=== PATIENT | female | born 1950 | race Caucasian/White ===

== ENCOUNTER 2016-11-18 08:25 | Day surgery (SDC) | payer BC ==
[2016-11-16 12:12] LABS: HEMATOCRIT 41.2 % (36.0-48.0); HEMOGLOBIN 14.3 g/dL (12.0-16.0)
[2016-11-16 12:26] LABS: BUN (BLOOD UREA NITROGEN) 8 MG/DL (6-23); CALCIUM, SERUM 9.7 MG/DL (8.5-10.4); CHLORIDE, SERUM 106 MMOL/L (96-112); CO2 (CARBON DIOXIDE) 26 MMOL/L (24-34); CREATININE 0.67 MG/DL (0.55-1.02); GFR AFRICAN AMERICAN 108 ML/MIN (>=60); GFR NON AFRICAN AMERICAN 93 ML/MIN (>=60); GLUCOSE, SERUM 90 MG/DL (60-99); POTASSIUM, SERUM 4.4 MMOL/L (3.5-5.3); SODIUM, SERUM 142 MMOL/L (135-148)
--- NOTE | ~2016-11-18 | OP ---
Record Of Operation [facility] [address] [place]. [address] NAME: SOPHIA PALACIOS : 54 STATUS : REG [facility] [place] PAT#: [id number] AGE: 66 ADM/REG DATE : 11/18/16 MR#: [id number] REPORT SERV DATE: 11/18/16 DICTATED BY: ABUNDIO INFANTE DATE: 11/18/16 REPORT STATUS : Draft TRANSCRIBED BY: MODL DATE: 11/18/16 DATE OF PROCEDURE: PREOPERATIVE DIAGNOSIS: Herniated nucleus pulposus, right L5-S1. POSTOPERATIVE DIAGNOSIS: Herniated nucleus pulposus, right L5-S1. PROCEDURE: 1. Microscopic navigation-assisted surgery. 2. Right L5-S1 hemilaminotomy and microdiskectomy. SURGEON: Abundio Infante D.O. SENIOR EDITOR: Alexa Brown. ANESTHESTIC: General. BLOOD LOSS: 15 mL. INDICATIONS FOR SURGERY: A 66-year-old female from the [facility] with a severe intractable right hip and leg pain. It has been through time, medication, and physician assistant primary care etc., nothing has helped. She has failed conservative care. Plain x-rays do reveal some loss of disk height at C5-6, but MRI shows a large extrusion with some migration behind the body of S1 on the right. The patient has failed conservative care and brought to surgery for the above procedure. Prior to surgery, risks, benefits, alternatives, and expectations were explained. Consent form has been signed. PROCEDURE IN DETAIL: Antibiotic prophylaxis given. Neurophysiology monitoring leads were inserted. The patient was brought to the operative suite. General anesthetic including endotracheal intubation was administered. The patient was placed prone on a Mikael spine frame. Bony prominences were carefully padded. Thoracolumbar spine was scrubbed with Hibiclens solution. DuraPrep was painted. Sterile drapes were applied. A small stab wound was carried out at the left posterosuperior iliac spine. A percutaneous pin with navigational frame attached was inserted in the PSIS. Intraoperative CT scan with O-arm obtained. CT information was used to register the navigational system. With navigational assistance, I identified the L5-S1. A midline incision was carried out just 2 cm in length. Blunt navigated probe was placed through the fascia, muscle, and docked over the interlaminar space. Muscle dilators were inserted followed by placement of a tubular retractor attached to an arm mount on the table. The microscope was sterilely draped and used throughout the remainder of the procedure. With navigational assistance, I determined the amount of lamina of L5 that needed to be removed in order to reach the cephalad boundary of the disk space. I used a 3 mm jesica bur and removed approximately 30% of the inferior lamina of L5, approximately 20% of medial Record Of Operation [address] [id number] NAME: SOPHIA PALACIOS : 54 STATUS : REG [facility] [place] PAT#: [id number] AGE: 66 ADM/REG DATE : 11/18/16 MR#: [id number] REPORT SERV DATE: 11/18/16 DICTATED BY: ABUNDIO INFANTE DATE: 11/18/16 REPORT STATUS : Draft TRANSCRIBED BY: MODL DATE: 11/18/16 facet joint of L5-S1. The lateral ligamentum flavum was elevated and removed without difficulty. The thecal sac and the nerve root were gently retracted toward the midline. A large extruded fragment was removed and multiple smaller fragments were removed. The wound was completely debrided of the impinging disk material. Hematemesis was stasis obtained with a bipolar cautery. The wound was irrigated. The retractor was removed. No bleeding was noted. The fascia was closed with a single interrupted #1 Vicryl suture. The subcutaneous tissue was closed with 2-0 Vicryl sutures. 2-0 vertical mattress nylon suture was used for skin closure. Sterile dressings were applied. The patient was returned to supine position, awakened, extubated, and taken to recovery room in satisfactory condition having tolerated the procedure well. Sponge, needle, and instrument counts were correct. No intraoperative complications were noted. /MODL Abundio Infante D.O. / [id number] CC: Elvira Olivares M.D.
[~2016-11-18 08:25] MED LIST: PRAVACHOL40 MG PO; PRIN10 PO; PROZAC40 MG PO; ULTRAM50 PO
== END 2016-11-18 17:32 | disposition home or self-care (01) ==
LOC: SDC 08:25
PROVIDERS: Orthopaedic Surgery Orthopaedic Surgery of the Spine
PROC: 01NB0ZZ Release Lumbar Nerve, Open Approach (ICD-10-PCS; 2016-11-18)
PROC: 0SB20ZZ Excision of Lumbar Vertebral Disc, Open Approach (ICD-10-PCS; principal; 2016-11-18 10:45)
DX: M51.17 Intervertebral disc disorders with radiculopathy, lumbosacral region (principal); I10 Essential (primary) hypertension; E78.5 Hyperlipidemia, unspecified; F32.9 Major depressive disorder, single episode, unspecified; F41.9 Anxiety disorder, unspecified; D64.9 Anemia, unspecified; F17.210 Nicotine dependence, cigarettes, uncomplicated; Z85.3 Personal history of malignant neoplasm of breast; Z90.49 Acquired absence of other specified parts of digestive tract; Z90.710 Acquired absence of both cervix and uterus; Z98.890 Other specified postprocedural states
CPT/HCPCS: 80048; 82962; 85014; 85018; 88304; 88311; 93005; A9270-GY; J0690; J2250; J2274; J2405; J2710; J3010